=== PATIENT | male | born 1990 | race Hispanic/Latino ===

== ENCOUNTER 2016-10-19 13:10 | Emergency (ER) | payer OTHER, MEDICARE ==
[~2016-10-19] VITALS: Ht 160 cm; Wt 77.1 kg
[~2016-10-19 13:10] MED LIST: AMOXICOT250 MG/5 M PO; CARVEDILOL6.25 MG PO; LISINOPRIL20 MG PO; ROBITUSSIN200 MG/10 PO; ZANTAC25 MG/ML PO; ZOFRAN4 M1 PO
[2016-10-19 13:13] VITALS: BP 131/76
--- NOTE | 2016-10-19 13:41 | ED DYSPNEA/ASTHMA COMPLAINT ---
History of Present Illness General Chief Complaint: General Adult Stated Complaint: DIFF BREATHING, COUGH Source: patient, family Exam Limitations: downs syndrome Vital Signs & Intake/Output Vital Signs & Intake/Output Vital Signs Date Time Temp Pulse Resp B/P B/P Pulse O2 O2 Flow FiO2 Mean Ox Delivery Rate 10/19 1313 98.0 90 14 131/76 96 Room Air Allergies Coded Allergies: MDX - Lactose (LACTOSE) (DIARRHEA 04/27/15) Reconcile Medications Albuterol Sulfate 2.5 MG/3 ML (0.083 %) VIAL.NEB 1 Vial INH/MIRYAM Q4P PRN wheezing/shortness of breath Carvedilol 6.25 MG TABLET 1 TAB PO BID HEART (Reported) Lisinopril 20 MG TAB 1 TAB PO DAILY HEART (Reported) [NEBULIZER MACHINE] 1 1 NEBULIZER MACHINE ICD 10: J45.909 Triage Note: 26 Y/O MALE 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 NONPRODUCTIVE COUGH NOTED. AFEBRILE. SAT 96% RA Triage Nurses Notes Reviewed? yes HPI: Patient is a 26-year-old male presents for evaluation of cough, chest congestion , fevers. Symptoms 2-3 days. Mother reports subjective fevers at home. They' ve been trying to use the patient's albuterol inhaler with a spacer but mother does not believe that he is receiving the medication appropriately. Patient with a history of Down syndrome, history is limited from the patient. Past History Travel History Traveled to [place] past 21 day No Medical History Any Pertinent Medical History? 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 No Review of Systems Review of Systems Constitutional: Reports: fever. EENTM: Reports: no symptoms. Respiratory: Reports: cough, short of breath, wheezing. Cardiovascular: Reports: no symptoms. GI: Reports: no symptoms. Musculoskeletal: Reports: no symptoms. Skin: Reports: no symptoms. Neurological/Psychological: Reports: no symptoms. Hematologic/Endocrine: Reports: no symptoms. Immunologic/Allergic: Reports: no symptoms. Physical Exam Physical Exam General Appearance: well developed/nourished, alert, awake Head: atraumatic, normal appearance Eyes: Bilateral: PERRL, EOMI. Ears, Nose, Throat: normal pharynx, normal ENT inspection, hearing grossly normal Neck: normal inspection, supple, full range of motion Respiratory: no respiratory distress, MINIMAL OCCASIONAL SCATTERED EXPIRATORY WHEEZING Cardiovascular: regular rate/rhythm Extremities: normal inspection, normal capillary refill, normal range of motion, no edema Neurologic/Psych: no motor/sensory deficits, awake, alert, oriented x 3, normal gait, normal mood/affect Skin: intact, normal color, warm/dry Lymphatic: no anterior cervical michelle Core Measures ACS in differential dx? No Severe Sepsis Present: No Septic Shock Present: No Progress Differential Diagnosis: asthma, bronchitis, pneumonia, ASPIRATION PNEUMONITIS Plan of Care: Orders Procedure Date/time Status XRY-CHEST XRAY, PA AND LATERAL 10/19 1338 Active Current Medications Sig/Moy Start time Last Medication Dose Stop Time Status Admin Albuterol Sulfate 3 ML ONCE ONE 10/19 134 AC (Proventil) 10/19 134 Patient afebrile, nontoxic appearing. No apparent respiratory distress on exam. Results of chest x-ray discussed with patient and his parents. Appears stable for discharge and close outpatient follow-up. (JADE MARCUS,ANGELICA) Diagnostic Imaging: Viewed by Me: Radiology Read. Discussed w/RAD: Radiology Read. Radiology Impression: PATIENT: SHERON WILLARD PRESENT AGE: 26 PATIENT ACCOUNT NO: [id number] : 89 LOCATION: [facility] ORDERING PHYSICIAN: ANGELICA MARCUS SERVICE DATE: 10/19/16 EXAM TYPE: RAD - XRY-CHEST XRAY, PA AND LATERAL EXAMINATION: XR CHEST CLINICAL INFORMATION: 26- year-old male patient with cough and congestion. COMPARISON: Chest x-rays on and 07/19/2013. TECHNIQUE: 2 views of the chest were obtained. FINDINGS: No significant abnormality is noted involving the heart, lungs, mediastinum, bony thorax or soft tissues. IMPRESSION: No pneumonia. DICTATED BY: GERMAN MICHELLE MD DATE/TIME DICTATED:10/19/161405 MEDICAL RECORD ADMINISTRATOR:RAD.[email or web address] DATE/ TIME TRANSCRIBED:10/19/16 / 1406 CONFIDENTIAL, DO NOT COPY WITHOUT APPROPRIATE AUTHORIZATION. <Electronically signed in Other Vendor System> SIGNED BY: GERMAN MICHELLE MD 10/19/16 141 Initial ED EKG: none Departure Departure Time of Disposition: 1418 Disposition: HOME OR SELF CARE Condition: Stable Clinical Impression Primary Impression: Bronchitis Referrals: CESAR GILLIS APRN (PCP/Family) Additional Instructions: Follow-up with your primary care provider within one week for further evaluation. Call today for appointment. Tylenol and/or ibuprofen as directed for pain and fevers. Robitussin as directed for cough. Return to the emergency department if breathing worsening, unable to stay hydrated, or worsening of symptoms. Departure Forms: Customer Survey General Discharge Information Prescriptions: Current Visit Scripts Albuterol Sulfate 1 Vial INH/MIRYAM Q4P PRN wheezing/shortness of breath #50 Vial [NEBULIZER MACHINE] 1 #1 1 NEBULIZER MACHINE ICD 10: J45.909 Critical Care Note Critical Care Note Critical Care Time: non-applicable
--- NOTE | 2016-10-19 14:12 | RADIOLOGY REPORT ---
EXAMINATION: XR CHEST CLINICAL INFORMATION: 26-year-old male patient with cough and congestion. COMPARISON: Chest x-rays on 10/21/2015 and 07/19/2013. TECHNIQUE: 2 views of the chest were obtained. FINDINGS: No significant abnormality is noted involving the heart, lungs, mediastinum, bony thorax or soft tissues. IMPRESSION: No pneumonia.
[2016-10-19] MEDS ORDERED: ALBUTEROL2.5 MG/3 M INH/SOL (14:20)
[2016-10-19] MEDS ORDERED: NEBULIZER MACHINE (14:22)
== END 2016-10-19 14:28 ==
LOC: ERH 13:10
DX: J40 Bronchitis, not specified as acute or chronic (principal)
CPT/HCPCS: 1263

== ENCOUNTER 2016-11-14 21:13 | Emergency (ER) | payer OTHER, MEDICARE ==
[~2016-11-14] VITALS: Ht 167.6 cm; Wt 79.4 kg
[~2016-11-14 21:13] MED LIST changes: +ALBUTEROL2.5 MG/3 M INH/SOL; +NEBULIZER MACHINE
--- NOTE | 2016-11-14 22:47 | ED INFLUENZA/URI COMPLAINT ---
History of Present Illness General Chief Complaint: Upper Respiratory Sx/Fever Stated Complaint: COUGHING, ASTHMA? X2DAYS Source: patient Exam Limitations: physical impairment Vital Signs & Intake/Output Vital Signs & Intake/Output Vital Signs Date Time Temp Pulse Resp B/P B/P Pulse O2 O2 Flow FiO2 Mean Ox Delivery Rate 11/144 98.9 100 18 140/86 98 Room Air 11/14 2223 98 11/140 99.2 102 20 144/84 97 Room Air Allergies Coded Allergies: MDX - Lactose (LACTOSE) (DIARRHEA 04/27/15) Reconcile Medications Albuterol Sulfate 2.5 MG/3 ML (0.083 %) VIAL.NEB 1 Vial INH/MIRYAM Q4P PRN wheezing/shortness of breath Amoxicillin/Potassium Clav (Amox-Clav 250-62.5 MG/5 Ml Elma) 250 MG-62.5 MG/5 ML SUSP.RECON 10 ML PO BID URI Brompheniramine/Pseudoephed/Dm (Bromfed Dm Cough Syrup) 2 MG-30 MG-10 MG/5 ML SYRUP 5-10 ML PO Q4-6 PRN PRN cough Carvedilol 6.25 MG TABLET 1 TAB PO BID HEART (Reported) Ibuprofen (Child Ibuprofen) 100 MG/5 ML ORAL.SUSP 20 ML PO TID FEVER Lisinopril 20 MG TAB 1 TAB PO DAILY HEART (Reported) [NEBULIZER MACHINE] 1 1 NEBULIZER MACHINE ICD 10: J45.909 Prednisolone 15 MG/5 ML SOLUTION 5 ML PO BID URI Triage Note: COUGH CONGESTION UPPER RESP SYMPTOM FOR ABOUT 1 WEEK Triage Nurses Notes Reviewed? yes Onset: Abrupt Duration: day(s): (3), constant Timing: recent history No Modifying Factors: none HPI: 26-year-old male comes into emergency room for further evaluation of runny nose, coughing, mucus production, subjective fever chills. Patient was sick with similar symptoms a little over a month ago. No vomiting. History very limited secondary to patient's Down syndrome. Patient unable to communicate any information. Family member denies any other associated symptoms. Past History Travel History Traveled to [place] past 21 day No Medical History Any Pertinent Medical History? 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 No Review of Systems Review of Systems Constitutional: Reports: see HPI. EENTM: Reports: see HPI. Respiratory: Reports: see HPI. Cardiovascular: Reports: no symptoms. GI: Reports: no symptoms. Genitourinary: Reports: no symptoms. Musculoskeletal: Reports: no symptoms. Skin: Reports: no symptoms. Neurological/Psychological: Reports: no symptoms. Hematologic/Endocrine: Reports: no symptoms. Immunologic/Allergic: Reports: no symptoms. All Other Systems: Reviewed and Negative Physical Exam Physical Exam General Appearance: well developed/nourished, no apparent distress, alert, awake Head: atraumatic, normal appearance Eyes: Bilateral: normal appearance, EOMI. Ears, Nose, Throat: normal ENT inspection, moist mucous membrane, hearing grossly normal Neck: normal inspection, full range of motion Respiratory: no respiratory distress, decreased breath sounds, wheezing (mild) Cardiovascular: regular rate/rhythm Back: normal inspection Extremities: normal inspection, normal range of motion, no edema Neurologic/Psych: awake, alert, oriented x 3, normal gait, normal mood/affect Skin: intact, normal color Core Measures Severe Sepsis Present: No Septic Shock Present: No Progress Differential Diagnosis: influenza, meningitis, neutropenia, otitis, pneumonia, pharyngitis, sinusitis Plan of Care: 11/14/2016 11:41:52 PM Patient clinically looks well. Patient is nontoxic-appearing. Patient reports he feels better after nebulizer treatment. Chest x-ray one month ago. Patient started on medications to treat upper respiratory infection/bronchitis. Follow- up with primary care doctor in 2 days. Return if any other concerns worsening symptoms. Family understands and agrees with plan of care. Initial ED EKG: none Departure Departure Disposition: HOME OR SELF CARE Condition: Stable Clinical Impression Primary Impression: Bronchitis Secondary Impressions: URI (upper respiratory infection) Referrals: CESAR GILLIS APRN (PCP/Family) Additional Instructions: Take ibuprofen, Bromfed, Augmentin, and prednisone as prescribed. Follow-up with primary care doctor for recheck in 2 days. Return if any concerns worsening symptoms. Please go over all results of today's visit with your primary care doctor. Contact your primary care doctor to let them know you were here in the emergency room. There may be nonspecific findings which may not be related to your visit today here in the emergency room but may require further evaluation and chronic monitoring by your primary care doctor. If you had a laceration today the chance of foreign body always remains. You should follow-up with your primary care doctor for recheck in 3-5 days for a wound check. If you had an x-ray done there is a chance that a fracture could have been missed on initial read and you should follow-up with your primary care doctor for repeat x-rays if symptoms persist. If your blood pressure was elevated here in the emergency room please have rechecked by her primary care doctor within the next 48 hours by your primary care doctor. If you were prescribed a narcotic here in the emergency room or any type of controlled substances you're not allowed to drive while taking this medication or operate any type of heavy machinery. Narcotics can make you feel lightheaded dizziness nausea and can cause constipation. You may need to cotton picker operator a stool softener. Thank you for choosing [facility] emergency room. Please return to the emergency room immediately if you have any other concerns worsening of symptoms. Departure Forms: Customer Survey General Discharge Information Prescriptions: Current Visit Scripts Brompheniramine/Pseudoephed/Dm (Bromfed Dm Cough Syrup) 5-10 ML PO Q4-6 PRN PRN cough #120 ML Amoxicillin/Potassium Clav (Amox-Clav 250-62.5 MG/5 Ml Elma) 10 ML PO BID #200 ML Prednisolone 5 ML PO BID #40 ML Ibuprofen (Child Ibuprofen) 20 ML PO TID #200 ML
[2016-11-14] MEDS ORDERED: PREDNISOLO15 MG/5 M4 PO (22:59)
[2016-11-14] MEDS ORDERED: CHILD IBUP100 MG/5 M PO (22:59)
[2016-11-14] MEDS ORDERED: AMOX-CLAV250 MG/5 M PO (22:59)
[2016-11-14] MEDS ORDERED: BROMFED DM COU118 M1 PO (22:59)
[2016-11-14 23:24] VITALS: BP 140/86
== END 2016-11-14 23:48 ==
LOC: ERH 21:13
DX: J40 Bronchitis, not specified as acute or chronic (principal)
CPT/HCPCS: 1263; J2650